=== PATIENT | male | born 1975 | race Caucasian/White ===

== ENCOUNTER → 2020-06-20 | Outpatient (CLI) | payer OTHER ==
[~2020-06-20] MED LIST: ALPR1 PO; HYDPAM25 PO; Percocet 5-3251 EACH PO; RISP1 PO
== END | disposition home or self-care (01) ==
LOC: LAB SHORT 14:11 → LAB 14:11
DX: Z20.828 Contact with and (suspected) exposure to other viral communicable diseases (principal)
CPT/HCPCS: U0003

== ENCOUNTER 2024-11-25 04:45 | Emergency (ER) | payer BC ==
[~2024-11-25] VITALS: Ht 177.8 cm; Wt 88.9 kg
[~2024-11-25 04:45] MED LIST changes: +BUPROPION XL150 M1 PO
[2024-11-25] MEDS ORDERED: Gabapentin 300 MG Cap PO ONE (06:15)
[2024-11-25] MEDS ORDERED: Ketorolac Tromethamine 30mg Vial IM ONE (07:25)
[2024-11-25] MEDS ORDERED: OxyCODONE 7.5 mg/Acetam 325 mg TABLET PO ONE (07:25)
[2024-11-25 10:35] VITALS: BP 143/99
[2024-11-25] MEDS ORDERED: OXYACE7.5T PO (10:46)
== END 2024-11-25 10:56 | disposition home or self-care (01) ==
LOC: ER 04:45
DX: M51.26 Other intervertebral disc displacement, lumbar region (principal); Z79.899 Other long term (current) drug therapy
CPT/HCPCS: 72148; 96374; 99283-25; A9270; J1885